=== PATIENT | male | born 1970 | race Caucasian/White ===

== ENCOUNTER 2023-08-10 14:55 | Emergency (ER) | payer OTHER ==
[~2023-08-10] VITALS: Ht 182.9 cm; Wt 80.7 kg
[2023-08-10] MEDS ORDERED: MORGIDOX100 MG PO (15:39)
[2023-08-10] MEDS ORDERED: CEPHALEXIN750 MG PO (15:40)
[2023-08-10] MEDS ORDERED: ELIQUIS5 MG PO (15:41)
[2023-08-10] MEDS ORDERED: CEFTRIAXONE SODIUM 1,000 MG VIAL IM STA (17:07)
[2023-08-10] MEDS ORDERED: AMOX-CLAV 875-1 EAC1 PO (18:06)
[2023-08-10 18:34] LABS: HEMATOCRIT 40.6 % (39.0-48.0); HEMOGLOBIN 13.4 g/dL (13-16.00); MEAN CELL VOLUME 88.9 fL (80.0-100.00); MEAN CORPUSCULAR HEMOGLOBIN 29.4 pg (27.00-32.0); MEAN CORPUSCULAR HGB CONC 33.1 g/dl (32.0-36.0); PLATELET COUNT 323 K/uL (150-450); RED BLOOD COUNT 4.57 M/uL (4.00-6.00)
== END 2023-08-10 18:49 | disposition home or self-care (01) ==
LOC: ER 14:55
PROVIDERS: General Practice
DX: S61.011A Laceration without foreign body of right thumb without damage to nail, initial encounter (principal); W50.3XXA Accidental bite by another person, initial encounter; Y93.89 Activity, other specified; Y92.89 Other specified places as the place of occurrence of the external cause; I10 Essential (primary) hypertension; Z95.1 Presence of aortocoronary bypass graft
CPT/HCPCS: 36415; 96372; 99282; J0696